=== PATIENT | female | born 1955 | race Caucasian/White ===

== ENCOUNTER 2017-12-01 10:07 | Emergency (ER) | payer OTHER ==
--- NOTE | 2017-12-01 10:16 | EDPHY ---
H & P Time Seen by Provider: 12/01/17 10:15 HPI/ROS: HPI: This is a 61-year-old female who presents with Chief Complaint: Right flank pain Location: Right flank Quality: Sharp pain Duration: 30 min prior to arrival Signs and Symptoms: no fever, no nausea, no vomiting, no hematemesis, no blood in stool, no abdominal bloating, no diarrhea, + back pain, no urinary symptoms, no vaginal bleeding/discharge, no indigestion, no chest pain, no shortness of breath Timing: Acute Severity: 10 out 10 Context: Patient reports that she was driving in the car and all of a sudden had a sharp, constant, nonradiating pain in her right flank. Daughter has a history of kidney stones but patient has never had a kidney stone. She denies any abdominal pain/nausea/vomiting/urinary symptoms/vaginal discharge or bleeding. She ate breakfast this morning normally. Denies injury/heavy lifting /trauma. On Coumadin for protein C deficiency/take Phospholipid syndrome. Patient reports that she urinated without difficulty this morning and did not notice any blood. Had a normal bowel movement as well. History appendectomy. Modifying Factors: None Comment: ROS: see HPI Constitutional: No fever, no chills, no weight loss Eyes: No blurred vision Respiratory: No shortness of breath, no cough Cardiovascular: No chest pain, no palpitations Gastrointestinal: No nausea, no vomiting, no diarrhea, no hematemesis, no blood in stool Genitourinary: No dysuria, no blood in urine Extremities: No myalgias, no edema Neurologic: No weakness, no numbness Skin: No rashes, no petechiae Hematologic: No bruising, no bleeding MEDICAL/SURGICAL/SOCIAL HISTORY: Medical history: Hyper coagulopathy Surgical history: Appendectomy Social history: Employed. CONSTITUTIONAL: Moderate distress adult white female, nontoxic in appearance, awake and alert HEENT: Atraumatic and normocephalic, PERRL, EOMI. Tympanic membranes clear. Oropharynx clear, no exudate and moist pink mucosa. Airway patent. No lymphadenopathy. No meningismus. Cardiovascular: Normal S1/S2, tachycardia, regular rhythm, without murmur rub or gallop. PULMONARY/CHEST: Symmetrical and nontender. Clear to auscultation bilaterally. Good air movement. No accessory muscle usage. ABDOMEN: Soft, nondistended, nontender, no rebound, no guarding, no peritoneal signs, no masses or organomegaly. Moderate Right CVAT. Bowel sounds heard x4 quadrants EXTREMITIES: 2/2 pulses, strength 5/5, no deformities, no clubbing, no cyanosis or edema. NEUROLOGICAL: no focal neuro deficits. GCS 15. SKIN: Warm and dry, no erythema. no rash. Good capillary refill. Source: Patient Exam Limitations: No limitations Constitutional: Initial Vital Signs Temperature (C) 36.7 C 12/01/17 10:10 Heart Rate 101 H 12/01/17 10:10 Respiratory Rate 22 H 12/01/17 10:10 Blood Pressure 148/95 H 12/01/17 10:10 O2 Sat (%) 96 12/01/17 10:10 O2 Delivery Mode Room Air Allergies/Adverse Reactions: codeine Allergy (Verified 12/01/17 10:15) hydromorphone [From Dilaudid] Allergy (Verified 12/01/17 10:15) levofloxacin [From Levaquin] Allergy (Verified 12/01/17 10:15) NSAIDS (Non-Steroidal Anti-Inflamma Allergy (Verified 12/01/17 10:15) Sulfa (Sulfonamide Antibiotics) Allergy (Verified 12/01/17 10:37) Home Medications: Medication Instructions Recorded Sertraline HCl [Zoloft 25mg (*)] 25 mg PO DAILY 12/01/17 Warfarin Sodium [Coumadin 2.5MG 2.5 mg PO 12/01/17 (*)] oxyCODONE/APAP 5/325 [Percocet 1 - 2 tab PO Q4H PRN #20 tab 12/01/17 5/325 (*)] Medical Decision Making - Diagnostics Imaging Results: Imaging Impressions Abdomen/Pelvis CT 12/01/17 11:16 Impression: 1. There is no evidence of nephrolithiasis or obstructive uropathy. 2. Mild constipation, predominantly along the ascending colon and the rectosigmoid colon, and uncomplicated descending colon and sigmoid colon diverticulosis. 3. Tiny suspected hepatic cysts/hamartomas. 4. By history, prior appendectomy. Attention: This CT examination is specifically designed to evaluate patients who are clinically suspected of having acute obstructive uropathy. This examination does not use radiographic contrast, and as such, provides only a limited evaluation of the abdomen, pelvis, and retroperitoneum. If there is further clinical suspicion for pathological conditions other than obstructive uropathy, a complete CT evaluation of the abdomen and pelvis utilizing intravenous, oral, and rectal contrast should be considered. Findings were discussed with Rosanne Ceja PA-C at 12:19, on 12/01/2017. ED Course/Re-evaluation: Patient politely declined CT imaging and only wants to start with a KUB as her daughter has a history of kidney stones and she reports she has had multiple CT scans in the past and does not with radiation. IV fluids, IV medications, KUB, labs, urinalysis ordered. Unable to give Toradol as patient on Coumadin. Given a few morphine 4 mg, IV morphine 6 mg, 2 L normal saline 1100: Labs reviewed an INR 3.13; creatinine 0.6 1115: Reassessed patient who reports that pain is now down to a 7/10 2 doses of IV morphine. Lidocaine gtt started. KUB shows large amount of stool in the right upper quadrant. Patient is now agreeable to CT abdomen and pelvis scan. Urinated prior to re-examination and dark in color. Urinalysis shows no signs of blood; infection. 1210: Reassessed patient who is calm lifting at bedside talking to a friend. Reports pain down to a 3/10. Called by radiologist who advised that:no evidence of nephrolithiasis or obstructive uropathy. 2. Mild constipation, predominantly along the ascending colon and the rectosigmoid colon, and uncomplicated descending colon and sigmoid colon diverticulosis. 1230: Reassessed patient and updated on CT results. Patient is convinced that she may have passed a stone. Denies any gallbladder etiology and politely declines right upper quadrant ultrasound. INRs 3 and patient doubt that she has a pulmonary embolism; politely decline CTA chest. Patient does not believe this is related to her back or musculoskeletal in nature. Offered admission for pain control and further evaluation and she politely decline. Patient prefers to go home with Percocet and close follow-up with primary care provider in 2-3 days. This patient was seen under the supervision of my secondary supervising physician. I evaluated care for this patient independently. Differential Diagnosis: Flank pain including but not limited to musculoskeletal causes, kidney stone, pyelonephritis, shingles, and intra-abdominal causes such as diverticulitis and appendicitis. - Data Points Laboratory Results: Laboratory Results 12/01/17 10:30 12/01/17 10:30 12/01/17 12/01/17 12/01/17 11:15 10:30 10:30 WBC RBC Hgb Hct MCV MCH MCHC RDW Plt Count MPV Neut % (Auto) Lymph % (Auto) Evans % (Auto) Eos % (Auto) Baso % (Auto) Nucleat RBC Rel Count Absolute Neuts (auto) Absolute Lymphs (auto) Absolute Monos (auto) Absolute Eos (auto) Absolute Basos (auto) Absolute Nucleated RBC Immature Gran % Immature Gran # PT 32.0 SEC H SEC (12.0-15.0) INR 3.13 H (0.83-1.16) Sodium 141 mEq/L mEq/L (135-145) Potassium 4.4 mEq/L mEq/L (3.5-5.2) Chloride 107 mEq/L mEq/L (97-110) Carbon Dioxide 23 mEq/l mEq/l (22-31) Anion Gap 11 mEq/L mEq/L (8-16) BUN 12 mg/dL mg/dL (7-23) Creatinine 0.6 mg/dL mg/dL (0.6-1.0) Estimated GFR > 60 Glucose 90 mg/dL mg/dL (70-100) Calcium 9.9 mg/dL mg/dL (8.5-10.4) Urine Color YELLOW Urine Appearance HAZY Urine pH 6.0 (5.0-7.5) Ur Specific [place] 1.021 (1.002-1.030) Urine Protein NEGATIVE (NEGATIVE) Urine Ketones NEGATIVE (NEGATIVE) Urine Blood NEGATIVE (NEGATIVE) Urine Nitrate NEGATIVE (NEGATIVE) Urine Bilirubin NEGATIVE (NEGATIVE) Urine Urobilinogen NEGATIVE EU EU (0.2-1.0) Ur Leukocyte Esterase TRACE H (NEGATIVE) Urine RBC NONE SEEN /hpf /hpf (0-3) Urine WBC 1-3 /hpf /hpf (0-3) Ur Epithelial Cells TRACE /lpf /lpf (NONE-1+) Hyaline Casts 25-50 /lpf H /lpf (0-1) Urine Mucus 1+ /lpf /lpf (NONE-1+) Urine Glucose NEGATIVE (NEGATIVE) 12/01/17 10:30 WBC 7.87 10^3/uL 10^3/uL (3.80-9.50) RBC 5.34 10^6/uL H 10^6/uL (4.18-5.33) Hgb 14.9 g/dL g/dL (12.6-16.3) Hct 46.1 % % (38.0-47.0) MCV 86.3 fL fL (81.5-99.8) MCH 27.9 pg pg (27.9-34.1) MCHC 32.3 g/dL L g/dL (32.4-36.7) RDW 15.0 % % (11.5-15.2) Plt Count 253 10^3/uL 10^3/uL (150-400) MPV 10.0 fL fL (8.7-11.7) Neut % (Auto) 73.1 % % (39.3-74.2) Lymph % (Auto) 16.4 % % (15.0-45.0) Evans % (Auto) 6.9 % % (4.5-13.0) Eos % (Auto) 2.3 % % (0.6-7.6) Baso % (Auto) 1.0 % % (0.3-1.7) Nucleat RBC Rel Count 0.0 % % (0.0-0.2) Absolute Neuts (auto) 5.76 10^3/uL 10^3/uL (1.70-6.50) Absolute Lymphs (auto) 1.29 10^3/uL 10^3/uL (1.00-3.00) Absolute Monos (auto) 0.54 10^3/uL 10^3/uL (0.30-0.80) Absolute Eos (auto) 0.18 10^3/uL 10^3/uL (0.03-0.40) Absolute Basos (auto) 0.08 10^3/uL 10^3/uL (0.02-0.10) Absolute Nucleated RBC 0.00 10^3/uL 10^3/uL (0-0.01) Immature Gran % 0.3 % % (0.0-1.1) Immature Gran # 0.02 10^3/uL 10^3/uL (0.00-0.10) PT INR Sodium Potassium Chloride Carbon Dioxide Anion Gap BUN Creatinine Estimated GFR Glucose Calcium Urine Color Urine Appearance Urine pH Ur Specific [place] Urine Protein Urine Ketones Urine Blood Urine Nitrate Urine Bilirubin Urine Urobilinogen Ur Leukocyte Esterase Urine RBC Urine WBC Ur Epithelial Cells Hyaline Casts Urine Mucus Urine Glucose Medications Given: Discontinued Medications Sodium Chloride (Ns) 1,000 mls @ 0 mls/hr IV ONCE ONE; Wide Open PRN Reason: Protocol Stop: 12/01/17 10:21 Last Admin: 12/01/17 10:26 Dose: 1,000 mls Lidocaine HCl 80 mg/ Sodium (Chloride) 108 mls @ 600 mls/hr IV EDNOW ONE Stop: 12/01/17 11:20 Last Admin: 12/01/17 11:40 Dose: 108 mls Sodium Chloride (Ns) 1,000 mls @ 0 mls/hr IV EDNOW ONE; Wide Open PRN Reason: Protocol Stop: 12/01/17 11:20 Last Admin: 12/01/17 11:40 Dose: 1,000 mls Morphine Sulfate (Morphine) 4 mg IVP EDNOW ONE Stop: 12/01/17 10:23 Last Admin: 12/01/17 10:25 Dose: 4 mg Morphine Sulfate (Morphine) 6 mg IVP EDNOW ONE Stop: 12/01/17 10:55 Last Admin: 12/01/17 11:04 Dose: 6 mg Ondansetron HCl (Zofran) 4 mg IVP EDNOW ONE Stop: 12/01/17 10:21 Last Admin: 12/01/17 10:26 Dose: 4 mg Departure - Departure Disposition: Home, Routine, Self-Care Clinical Impression: Right flank pain Condition: Good Instructions: Flank Pain (ED) Additional Instructions: Consume a minimum of 8-10 glasses of water or electrolyte fluid replacement drinks that include Gatorade, Powerade, Pedialyte. Eat a bland diet for the next 48 hours and then slowly advance as tolerated. Take Zofran 1 tab every 4 hours as needed for nausea, vomiting. Take Tylenol 650 mg every 4 hours and/or Ibuprofen 600 mg every 8 hours with food as needed for pain. Use Percocet every 6 hours as needed for severe/break through pain. Do not use Tylenol and Percocet concomitantly. Close follow-up with primary care provider in 2-3 days. Return to the Emergency Room if symptoms do not resolve in the next 48-72 hours , you spike a fever > 102 F, or experience intractable abdominal pain/nausea/ vomiting. Referrals: STEPHANIE TIDWELL [Other] - As per Instructions Prescriptions: oxyCODONE/APAP 5/325 [Percocet 5/325 (*)] 1 - 2 tab PO Q4H PRN #20 tab PRN Reason: Pain, Severe
[2017-12-01 10:18] VITALS: TEMP 98.1
[2017-12-01] MEDS ORDERED: ONDANSETRON 4 MG/2 ML VIAL ONE (10:20)
[2017-12-01] MEDS ORDERED: NS 1,000 ML IV ONE ×2 (10:20→11:19)
[2017-12-01] MEDS ORDERED: ONDANSETRON 4 MG/2 ML VIAL IVP ONE (10:20)
[2017-12-01 10:41] LABS: PLATELET COUNT 253 10^3/uL (150-400)
[2017-12-01 10:50] LABS: INR 3.13 (0.83-1.16)
[2017-12-01] MEDS ORDERED: LIDOCAINE 1% 80 MG in NS 100 ML IV ONE (11:10)
[2017-12-01 13:19] VITALS: BP 135/83; PULSE 77; RESP 18; O2SAT 93
== END 2017-12-01 13:17 | disposition home or self-care (01) ==
DX: R10.9 Unspecified abdominal pain (principal); E86.9 Volume depletion, unspecified; Z79.01 Long term (current) use of anticoagulants; Z90.89 Acquired absence of other organs
CPT/HCPCS: 96374; J2270; J2405